=== PATIENT | male | born 1970 | race Caucasian/White ===

== ENCOUNTER → 2016-08-08 | Outpatient (CLI) | payer BC ==
[2016-08-08 16:45] VITALS: BP 137/84; PULSE 67; TEMP 97.8; BMI 36.9
[2016-08-08 17:48] LABS: CH 30.3; CHCM 33.6; HCT 41.5 % (39.0-53.0); HGB 14.1 gm/dL (13.0-17.5); MCH 30.9 pg (25.0-35.0); MCHC 34.1 g/dL (31.0-37.0); MCV 90.7 fL (80.0-100.0); Mean Platelet Volume 7.6; RBC 4.58 m/uL (4.30-5.90); RDW 13.1 % (11.5-15.5); WBC 10.1 k/uL (3.8-10.6)
[2016-08-08 17:56] LABS: Hemoglobin A1C 5.6 % (4.2-6.1); INR 1.1 (<1.1); Partial Thromboplastin Time 25.3 sec (22.0-30.0); Prothrombin Time 10.8 sec (9.0-12.0)
[2016-08-08 18:12] LABS: ALT 38 U/L (21-72); AST 25 U/L (17-59); Alkaline Phosphatase 81 U/L (38-126); Anion Gap 8 mmol/L; Blood Urea Nitrogen 17 mg/dL (9-20); Calcium 9.5 mg/dL (8.4-10.2); Carbon Dioxide 27 mmol/L (22-30); Chloride 107 mmol/L (98-107); Cholesterol 117 mg/dL (<200); Glucose 85 mg/dL (74-99); HDL Cholesterol 32 mg/dL (40-60); Iron 100 ug/dL (49-181); Non-African American GFR(MDRD) >60 (>60 ml/min/1.73 sqM); Potassium 4.7 mmol/L (3.5-5.1); Sodium 142 mmol/L (137-145); Total Bilirubin 0.5 mg/dL (0.2-1.3); Total Protein 6.7 g/dL (6.3-8.2); Triglycerides 141 mg/dL (<150)
[2016-08-08 18:23] LABS: % Iron Saturation 35.6 % (20-50); Prealbumin 22 mg/dL (18-36); Total Iron Binding Capacity 281 ug/dL (261-462)
[2016-08-08 19:14] LABS: Vitamin B12 588 pg/mL (239-931)
[2016-08-11 21:25] LABS: Selenium 145 mcg/L (63-160)
--- NOTE | 2016-09-10 17:58 | P.PN ---
Progress Note - Text DATE OF CONSULTATION: 08/08/2016 CHIEF COMPLAINT: Bariatric evaluation. HISTORY OF PRESENT ILLNESS: Herb Romero is a 46-year-old gentleman who reports having his adjustable gastric band placed in 2010. He is now 6 years out. For his height of 5 feet 10-1/2 inches his ideal body weight is 173 pounds. His highest weight was 366 pounds. Today he comes in weighing 261 pounds. Body mass index has been reduced from 51.9 down to 37. He is still 88 pounds overweight. He reports severe nighttime reflux including with sitting up. His reflux has been prolonged for the last six months. He has poor response to therapy with Zantac. Incidentally from his lowest weight of 229 to 230 pounds, he has gained another 30 pounds with worsening of his symptoms. He reports that bread and meat get stuck with his band. He has troubles with bread including salads. He reports not having acid reflux prior to his surgery. He also reports having at least troubles with sleep where he snores at night. He now presents for further evaluation and management. PAST MEDICAL HISTORY: 1. Gastroesophageal reflux disease. 2. Morbid obesity. 3. Osteoarthritis of the joints. PAST SURGICAL HISTORY: 1. Placement of adjustable gastric band in 2010. 2. Inguinal hernia repair. 3. Tonsillectomy. MEDICATIONS: Zantac. ALLERGIES: Denies. SOCIAL HISTORY: Current daily smoker. FAMILY HISTORY: Significant for morbid obesity. REVIEW OF SYSTEMS: CONSTITUTIONAL: Highest personal weight of 366 pounds. Weight loss of 106 pounds. He is still 88 pounds overweight. Body mass index is reduced and 51.9 down to 37. HEENT: Wears glasses. No reports of troubles with bleeding. Has intermittent dysphagia to textured foods. ENDOCRINE: No reports of blood sugar intolerance or thyroid disorder. RESPIRATORY: He denies any pneumonia. He has history of snoring including occasional daytime somnolence. Underwent treatment for obstructive sleep apnea. GASTROINTESTINAL: Reports worsening gastroesophageal reflux disease in the last 6 months. No reports of blood in stools. CARDIOVASCULAR: No reports of chest pain or heart attack. NEURO: No strokes or seizure disorder. MUSCULOSKELETAL: Has occasional joint pain. PSYCH: No reports of depression or suicidal ideation. HEMATOLOGIC: Denies any easy bruising or bleeding. PHYSICAL EXAM: VITAL SIGNS: 97.8, 67, 137/84; 5 foot 10-05/07, 261 pounds. Body mass index of 37. GENERAL: Well-developed pleasant male in no acute distress. HEENT: No scleral icterus. Extraocular movements grossly intact. Moist buccal mucosa. NECK: Supple without lymphadenopathy. CHEST: Nonlabored respirations with equal bilateral excursions. CARDIOVASCULAR: Regular rate and rhythm. ABDOMEN: Protuberant, soft, nontender. Palpable lap band port along the left upper quadrant without tenderness. MUSCULOSKELETAL: No clubbing, cyanosis, or edema. NEURO: No focal or lateralizing signs. PSYCH: Appropriate affect. Alert to person, place, and time. BARIATRIC LABS: White count normal at 10.3, hemoglobin normal at 14.1. HDL low at 32. Vitamin D is low at 22.6. The rest of labs completely within normal limits. ASSESSMENT: 1. Morbid obesity due to excess calories. 2. Body mass index reduced from 51.9 down to 37. 3. History of adjustable gastric band. 4. Gastroesophageal reflux disease, uncontrolled with therapy. 5. History of snoring. 6. Vitamin D deficiency. 7. Low HDL. 8. Dysphagia to solid foods. PLAN: 1. I have recommend adjustment of his band as he reports troubles particularly with textured foods and healthy foods such as salads. 2. He has completed bariatric metabolic panel with findings consistent with low HDL as well as vitamin D deficiency. 3. I recommend vitamin D supplement at least 5000 units daily. 4. He has gastroesophageal reflux disease especially 5+ years after his band, which may be suspicious for tight band. Recommend weight loss and fluid removal from his band for further evaluation and management. 5. Recommend follow-up approximately 3 to 4 weeks regarding symptom control. PROCEDURE: Adjustment of gastric band. DESCRIPTION OF PROCEDURE: After verbal consent, the patient was laid supine. The port was palpated in the left upper quadrant without tenderness. The skin was cleansed using ChloraPrep wipe. 1% lidocaine was used to anesthetize the skin. Using a 22-gauge noncoring Fritz needle, the port was accessed. 7 mL of fluid was found in his band. Approximately 3 mL of fluid was removed. A total of 4 mL was found in his band. The patient is able to tolerate sips of water without symptoms. He was also recommended to undergo bariatric high-protein diet. After adjustment of his band, he reports moderate improvement of his reflux disease as well.
--- NOTE | 2016-09-12 17:31 | FL ---
EXAMINATION TYPE: FL esophagus cervic/pharynx DATE OF EXAM: 09/12/2016 5:00 PM HISTORY: 46-year-old male evaluate for band slippage, patient with a 5 pound weight gain, difficulty accessing the port. COMPARISON: NONE TECHNIQUE: Single contrast esophagram is performed. 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 The lap band p ort projecting at the left upper quadrant is slightly tilted. The esophagus shows normal motility. There is good flow of contrast across the lap band without any o bstruction or evidence for lap band prolapse. IMPRESSION: No evidence for obstruction or lap band prolapse. No significant restriction to the passage of contra st across the lap band. The lap band port is slightly rotated. Refer to the cdl flatbed truck driver radiograph.
== END | disposition home or self-care (01) ==
LOC: BARWHC3 15:23
PROVIDERS: ATTEND Surgery Plastic and Reconstructive Surgery
DX: Z48.815 Encounter for surgical aftercare following surgery on the digestive system (principal); E66.01 Morbid (severe) obesity due to excess calories; E21.1 Secondary hyperparathyroidism, not elsewhere classified; D50.8 Other iron deficiency anemias; K90.89 Other intestinal malabsorption; K21.9 Gastro-esophageal reflux disease without esophagitis; E55.9 Vitamin D deficiency, unspecified; K74.1 Hepatic sclerosis; N19 Unspecified kidney failure; K50.90 Crohn's disease, unspecified, without complications; R06.83 Snoring; R79.89 Other specified abnormal findings of blood chemistry; R13.10 Dysphagia, unspecified; F17.200 Nicotine dependence, unspecified, uncomplicated; Z68.37 Body mass index [BMI] 37.0-37.9, adult; Z98.84 Bariatric surgery status; Z79.899 Other long term (current) drug therapy
CPT/HCPCS: 80053; 80061; 82306; 82525; 82607; 82728; 82746; 83036; 83540; 83550; 83735; 83970; 84100; 84134; 84255; 84425; 84443; 84590; 84630; 85027; 85610; 85730; 99202

== ENCOUNTER → 2016-09-12 | Outpatient (CLI) | payer BC ==
[2016-09-12 16:38] VITALS: BP 134/84; PULSE 61; RESP 16; TEMP 98.2; BMI 37.5
--- NOTE | 2016-11-01 12:30 | P.PN ---
Progress Note - Text DATE OF SERVICE: 09/12/2016. CHIEF COMPLAINT: History of adjustable gastric band. HISTORY OF PRESENT ILLNESS: Herb Romero is a 46-year-old gentleman with a past medical history of adjustable gastric band placed over 6 years ago. At his height of 5 foot 10 and one half inches, his ideal body weight is 173 pounds. His highest weight was 366 pounds. Today he comes in weighing 254 pounds. He has maintained 102 pounds weight loss. He has already gained approximately 4 pounds in 2 months. Body mass index reduced from 51.9 down to 37.5. Total BMI point reduction is 14 points. He is still at least 91 pounds overweight. His gastroesophageal reflux disease has moderately improved as well. PAST MEDICAL HISTORY: 1. Gastroesophageal reflux disease. 2. Morbid obesity. 3. Osteoarthritis of the joints. PAST SURGICAL HISTORY: 1. Placement of adjustable gastric band in 2010. 2. Inguinal hernia repair. 3. Tonsillectomy. MEDICATIONS: 1. Omeprazole ALLERGIES: Denies. SOCIAL HISTORY: Current daily smoker. FAMILY HISTORY: Significant for morbid obesity. REVIEW OF SYSTEMS: CONSTITUTIONAL: At his height of 5 foot 10 and one half inches, his ideal body weight is 173 pounds. His highest weight was 366 pounds. Today he comes in weighing 254 pounds. He has maintained 102 pounds weight loss. He has already gained approximately 4 pounds in 2 months. Body mass index reduced from 51.9 down to 37.5. Total BMI point reduction is 14 points. He is still at least 91 pounds overweight. HEENT: Wears glasses. No reports of troubles with bleeding. Has intermittent dysphagia to textured foods. ENDOCRINE: No reports of blood sugar intolerance or thyroid disorder. RESPIRATORY: He denies any pneumonia. He has history of snoring including occasional daytime somnolence. Underwent treatment for obstructive sleep apnea. GASTROINTESTINAL: Personal history of gastroesophageal reflux disease now improved with removal of fluid from his band. No reports of blood in stools. CARDIOVASCULAR: No reports of chest pain or heart attack. NEURO: No strokes or seizure disorder. MUSCULOSKELETAL: Has occasional joint pain. PSYCH: No reports of depression or suicidal ideation. HEMATOLOGIC: Denies any easy bruising or bleeding. PHYSICAL EXAM: VITAL SIGNS: 98.2, 61, 16, 134/84, 5 feet 10-1/2 inches, 264 pounds. Body mass index of 37.5. GENERAL: Well-developed pleasant male in no acute distress. HEENT: No scleral icterus. Extraocular movements grossly intact. Moist buccal mucosa. NECK: Supple without lymphadenopathy. CHEST: Nonlabored respirations with equal bilateral excursions. CARDIOVASCULAR: Regular rate and rhythm. ABDOMEN: Protuberant, soft, nontender. Palpable lap band port along the left upper quadrant without tenderness. MUSCULOSKELETAL: No clubbing, cyanosis, or edema. NEURO: No focal or lateralizing signs. PSYCH: Appropriate affect. Alert to person, place, and time. LABS: Basic metabolic panel was reviewed, demonstrating white count normal at 7.1. Hemoglobin normal at 14.1. Hemoglobin A1c normal 5.6%. HDL low at 32. Vitamin D low at 22.6. Trace elements within normal limits. ASSESSMENT: 1. Morbid obesity due to excess calories, improved. 2. Body mass index reduced from 51.9 down to 37.5. 3. Personal history of adjustable gastric band. 4. Gastroesophageal reflux disease, resolved following adjustment of adjustable gastric band. 5. Vitamin D deficiency. 6. History of snoring. 7. Low HDL. PLAN: 1. Recommend vitamin D supplement at least 5000 units daily. 2. He has regained weight already in one month and we will recommend adjustment. 3. Recommend at minimum yearly bariatric metabolic panel to evaluate and investigate nutritional deficiencies. PROCEDURE: Adjustment of gastric band. DESCRIPTION: After verbal consent, the patient was laid supine. The skin was cleansed using ChloraPrep. 1 mL of 1% lidocaine was used to anesthetize to localized the skin. Using a non-core 22-gauge needle, the port was attempted at least 3 passes. The port of the band was found to be tilted hence prohibiting access of his band. The patient has elected to stop. He had tolerated the procedure well.
== END | disposition home or self-care (01) ==
LOC: BARWHC3 15:20
PROVIDERS: ATTEND Surgery Plastic and Reconstructive Surgery
DX: E66.01 Morbid (severe) obesity due to excess calories (principal); Z98.84 Bariatric surgery status; Z68.37 Body mass index [BMI] 37.0-37.9, adult; K21.9 Gastro-esophageal reflux disease without esophagitis; E55.9 Vitamin D deficiency, unspecified
CPT/HCPCS: 99212

== ENCOUNTER → 2017-03-07 | Outpatient (CLI) | payer BC ==
[2017-03-07 12:21] VITALS: BP 122/81; PULSE 63; RESP 16; TEMP 98.3; BMI 38.0
--- NOTE | 2017-05-06 17:53 | P.PN ---
Subjective Progress Note Date: 03/07/17 DATE OF SERVICE: 03/07/2017. CHIEF COMPLAINT: History of adjustable gastric band. HISTORY OF PRESENT ILLNESS: Herb Romero is a 46-year-old gentleman with a past medical history of adjustable gastric band placed over 6 years ago. At his height of 5 foot 10 and one half inches, his ideal body weight is 173 pounds. His highest weight was 366 pounds. Today he comes in weighing 268 pounds. He has lost 10 pounds in 3 months since his last evaluation. He has maintained 98 pounds weight loss. His gastroesophageal reflux disease has recurred. Separately, he has history of panniculitis. Body mass index reduced from 51.9 down to 38.0. Total BMI point reduction is 13.9 points. He is 95 pounds overweight. PAST MEDICAL HISTORY: 1. Gastroesophageal reflux disease. 2. Morbid obesity. 3. Osteoarthritis of the joints. PAST SURGICAL HISTORY: 1. Placement of adjustable gastric band in 2010. 2. Inguinal hernia repair. 3. Tonsillectomy. MEDICATIONS: 1. Omeprazole ALLERGIES: Denies. SOCIAL HISTORY: Current daily smoker. FAMILY HISTORY: Significant for morbid obesity. REVIEW OF SYSTEMS: CONSTITUTIONAL: At his height of 5 foot 10 and one half inches, his ideal body weight is 173 pounds. His highest weight was 366 pounds. Today he comes in weighing 278 pounds. Body mass index reduced from 51.9 down to 38.0. Total BMI point reduction is 13.9 points. He is 95 pounds overweight. HEENT: Wears glasses. No reports of troubles with bleeding. Has intermittent dysphagia to textured foods. ENDOCRINE: No reports of blood sugar intolerance or thyroid disorder. RESPIRATORY: He denies any pneumonia. He has history of snoring including occasional daytime somnolence. Underwent treatment for obstructive sleep apnea. GASTROINTESTINAL: Personal history of gastroesophageal reflux disease. No reports of blood in stools. CARDIOVASCULAR: No reports of chest pain or heart attack. NEURO: No strokes or seizure disorder. MUSCULOSKELETAL: Has occasional joint pain. PSYCH: No reports of depression or suicidal ideation. HEMATOLOGIC: Denies any easy bruising or bleeding. SKIN: Has panniculitis. No history of cancers. PHYSICAL EXAM: VITAL SIGNS: 5 feet 10-1/2 inches, 268 pounds. Body mass index of 38.0. Vital Signs Temp 98.3 F 03/07/17 11:58 Pulse 63 03/07/17 11:58 Resp 16 03/07/17 11:58 BP 122/81 03/07/17 11:58 Pulse Ox GENERAL: Well-developed pleasant male in no acute distress. HEENT: No scleral icterus. Extraocular movements grossly intact. Moist buccal mucosa. NECK: Supple without lymphadenopathy. CHEST: Nonlabored respirations with equal bilateral excursions. CARDIOVASCULAR: Regular rate and rhythm. ABDOMEN: Protuberant, soft, nontender. Palpable lap band port along the left upper quadrant without tenderness. MUSCULOSKELETAL: No clubbing, cyanosis, or edema. NEURO: No focal or lateralizing signs. PSYCH: Appropriate affect. Alert to person, place, and time. SKIN: Good skin turgor. Has panniculitis. ASSESSMENT: 1. Morbid obesity due to excess calories. 2. Body mass index reduced from 51.9 down to 38.0. 3. Personal history of adjustable gastric band. 4. Gastroesophageal reflux disease. 5. Panniculitis. PLAN: 1. May need future adjustment of gastric band with his history of gastroesophageal reflux disease. 2. I have recommended taking medications such as Zantac or omeprazole to control symptoms. 3. Recommend ultrasound of the gallbladder for possible cholecystitis. 4. May benefit from upper endoscopy for history of gastroesophageal reflux disease. 5. Recommend Nystatin powder for history of panniculitis.
== END | disposition home or self-care (01) ==
LOC: BARWHC3 11:25
PROVIDERS: ATTEND Surgery Plastic and Reconstructive Surgery
DX: Z09 Encounter for follow-up examination after completed treatment for conditions other than malignant neoplasm (principal); E66.01 Morbid (severe) obesity due to excess calories; K21.9 Gastro-esophageal reflux disease without esophagitis; M79.3 Panniculitis, unspecified; F17.200 Nicotine dependence, unspecified, uncomplicated; Z68.38 Body mass index [BMI] 38.0-38.9, adult; Z98.84 Bariatric surgery status
CPT/HCPCS: 99211

== ENCOUNTER → 2017-03-21 | Outpatient (CLI) | payer BC ==
--- NOTE | 2017-03-21 09:23 | US ---
EXAMINATION TYPE: US gallbladder DATE OF EXAM: 03/21/2017 COMPARISON: NONE CLINICAL HISTORY: R10.11 Right upper quadrant pain. Patient states having an increase in heartburn EXAM MEASUREMENTS: Liver Length: 19.8 cm Gallbladder Wall: 0.2 cm CHD: 0.5 cm Right Kidney: 12.2 x 6.7 x 6.8 cm Pancreas: Obscured by bowel gas Liver: Increased attenuation, decreased visualization of vessels suggestive of fatty infiltrate. Ap pears echogenic and enlarged. Left anterior lobe, hypoechoic lesion seen = 1.0 by 0.5 cm. Second anec hoic hepatic cysts measure 0.6 cm. Gallbladder: Two focal lesions adjacent to wall= 0.3 cm and 0.3 cm that are nonshadowing and hyperec hoic. No gallbladder wall thickening, biliary sludge or cholelithiasis. Evidence for sonographic Marsh's sign: neg CHD: wnl Right Kidney: wnl IMPRESSION: 1. No sonographic evidence of acute cholecystitis or cholelithiasis. 2. Subcentimeter gallbladder polyps (3 mm each). Surveillance is recommended. 3. Findings most compatible with mild hepatic steatosis and a 6 mm left hepatic cyst. However a secon d hypoechoic avascular 1 cm lesion is not sonographically compatible with a simple cyst. Dynamic enha nced CT hepatic mass protocol is recommended for further characterization.
== END | disposition home or self-care (01) ==
LOC: RADUSWWP 08:23
PROVIDERS: ATTEND Surgery Plastic and Reconstructive Surgery
DX: K82.4 Cholesterolosis of gallbladder (principal); K76.0 Fatty (change of) liver, not elsewhere classified; K76.89 Other specified diseases of liver
CPT/HCPCS: 76705

== ENCOUNTER → 2024-03-11 | Outpatient (CLI) | payer BC ==
[2024-03-11 15:08] LABS: Basophils # (A) 0.08 X 10*3/uL (0.00-0.10); Eosinophils # (A) 0.31 X 10*3/uL (0.04-0.35); Eosinophils % (A) 3.9 %; HGB 14.4 g/dL (13.0-17.0); Lymphocytes # (A) 1.97 X 10*3/uL (0.90-5.00); Lymphocytes % (A) 25.1 %; MCH 30.1 pg (27.0-32.0); MCHC 32.7 g/dL (32.0-37.0); MCV 91.9 FL (80.0-97.0); Monocytes # (A) 0.75 X 10*3/uL (0.20-1.00); Monocytes % (A) 9.5 %; NRBC Per 100 WBC 0 X 10*3/uL (0.00-0.01); Neutrophils # (A) 4.71 X 10*3/uL (1.80-7.70); Platelet Count 193 X 10*3/uL (140-440); RBC 4.79 X 10*6/uL (4.40-5.60); WBC 7.86 X 10*3/uL (4.50-10.00)
[2024-03-11 15:16] LABS: ALT 26 U/L (10-49); AST 28 U/L (14-35); Albumin/Globulin Ratio 1.48 Ratio (1.60-3.17); Alkaline Phosphatase 110 U/L (41-126); BUN/Creat Ratio 11.15 Ratio (12.00-20.00); Blood Urea Nitrogen 14.5 mg/dL (9.0-27.0); Calcium 9.5 mg/dL (8.7-10.3); Carbon Dioxide 26.8 mmol/L (21.6-31.8); Chloride 106 mmol/L (96-109); Globulin 2.7 g/dL (1.6-3.3); Glucose 112 mg/dL (70-110); Potassium 4.7 mmol/L (3.5-5.5); Sodium 143 mmol/L (135-145); Total Bilirubin 0.5 mg/dL (0.3-1.2); Total Protein 6.7 g/dL (6.2-8.2)
== END | disposition home or self-care (01) ==
LOC: LABWHC1 08:56
PROVIDERS: ATTEND Surgery Plastic and Reconstructive Surgery
DX: Z01.812 Encounter for preprocedural laboratory examination (principal)
CPT/HCPCS: 36415; 80053; 85025; 93005

== ENCOUNTER → 2024-03-16 | Day surgery (SDC) | payer BC ==
[~2024-03-16] MED LIST: DEXAMETHASONE SOD PHOSPHATE 4 MG/ML 1 ML VIAL ONE; GLYCOPYRROLATE 0.2 MG/ML 2 ML VIAL ONE; LACTATED RINGERS 1,000 ML IV SCH; LIDOCAINE 1% INJ 10MG/ML (20 ML MDV) ONE; MIDAZOLAM 2 MG/2 ML VIAL ONE; NEOSTIGMINE 1 MG/ML 10 ML VIAL ONE; ONDANSETRON 4 MG/2 ML VIAL IVP PRN; PROPOFOL 10 MG/ML 20 ML VIAL IV ONE; ROCURONIUM 10 MG/ML (5 ML VIAL) IV ONE; ROPIVACAINE 5 MG/ML 30 ML VIAL ONE; SUCCINYLCHOLINE CHLORIDE 200 MG/10 ML VIAL IV ONE; ePHEDrine 50 MG/ML 1 ML VIAL ONE; fentaNYL (PF) 50 MCG/ML 2 ML AMP ONE
--- NOTE | 2024-03-16 06:23 | P.GSHP ---
History of Present Illness H&P Date: 03/16/24 CHIEF COMPLAINT: Morbid obesity HISTORY OF PRESENT ILLNESS: Herb Romero is a 53-year-old male who comes with lifelong morbid obesity. He had adjustable gastric banding 2010, 13 years ago. As result of morbid obesity, he has hypertensive heart disease, obstructive sleep apnea, hyperlipidemia, osteoarthritis of the hips and knees. He presents with chronic complications with adjustable gastric band including severe gastroesophageal reflux disease over 7 years. He presents with intoler ance to band adjustments. At his height of 5 foot 10.5 inches, his ideal body weight is 173 pounds. His highest weight was 366 pounds with body mass index 51.9. He comes in 320 pounds, body mass index 44.6. Total weight loss 46 pounds. He is at 147 pounds overweight. PAST MEDICAL HISTORY: 1. Morbid obesity due to excess calories 2. Body mass index of 51.9 to 44.6 3. Osteoarthritis of the knees. 4. Osteoarthritis of the lower back. 5. Gastroesophageal reflux disease 6. Obstructive sleep apnea 7. Hypertensive heart disease 8. Right kidney cancer PAST SURGICAL HISTORY: 1. Placement of adjustable gastric band in 2010. 2. Inguinal hernia repair. 3. Tonsillectomy. 4. Right partial nephrectomy HOME MEDICATIONS: Reviewed ALLERGIES: Reviewed SOCIAL HISTORY: Past tobacco use. FAMILY HISTORY: No family history of ulcerative colitis disease or Crohn's disease. Family history of morbid obesity. No lupus in the family. No reports of stomach or esophageal cancer. REVIEW OF ORGAN SYSTEMS: CONSTITUTIONAL: At his height of 5 foot 10.5 inches, his ideal body weight is 173 pounds. His highest weight was 366 pounds with body mass index 51.9. He comes in 320 pounds, body mass index 44.6. Goal weight loss 46 pounds. He is at 147 pounds overweight. HEENT: Denies any active troubles with vision or hearing. ENDOCRINE: Has diabetes. Has hypothyroidism. CARDIOVASCULAR: Past reports of palpitations or heart attacks or chest pain. RESPIRATORY: Has daytime somnolence. GASTROINTESTINAL: Denies any bright red blood per rectum. Has gastroesophageal reflux disease. MUSCULOSKELETAL: Has lower back pain and joint pain. Has osteoarthritis of the knees. NEURO: No headaches. No seizure disorders. PSYCH: Has depression. No suicidal ideation. RHEUMATOLOGIC: No lupus. No rheumatoid arthritis. HEMATOLOGIC: Denies any abnormal bleeding or bruising. No personal history of DVTs. SKIN: Has rash. No skin cancer. PHYSICAL EXAM: VITAL SIGNS: Height 5 foot 10.5 inches, weight 320 pounds. BMI 44.6 GENERAL: Well-developed in no acute distress. HEENT: No scleral icterus. Extraocular movements grossly intact. Hears conversational speech. No nasal drainage. NECK: Supple without lymphadenopathy. CHEST: Nonlabored respirations with equal bilateral excursions. CARDIOVASCULAR: Regular rate and regular rhythm. Distal 2+ pulses. ABDOMEN: Obese, soft, nontender, nondistended. MUSCULOSKELETAL: No clubbing, cyanosis. NEURO: No focal or lateralizing signs. Cranial nerves 2 through 12 grossly within normal limits. PSYCH: Appropriate affect. Alert and oriented to person, place and time. SKIN: Good skin turgor. Well perfused. ASSESSMENT: 1. Morbid obesity due to excess calories 2. Body mass index of 51.9 to 44.6 3. Osteoarthritis of the knees. 4. Osteoarthritis of the lower back. 5. Gastroesophageal reflux disease 6. Obstructive sleep apnea 7. Hypertensive heart disease 8. Right kidney cancer 9. Complications from adjustable gastric banding. PLAN: 1. He presents with intolerance to gastric banding with severe gastroesophageal reflux disease for over 7 years. Removal of adjustable gastric band and also component with upper endoscopy described. 2. Preoperative labs including complete metabolic panel and CBC with type and screen recommended. 3. DVT prophylaxis per [place] [facility]. 4. Antibiotic prophylaxis. 5. 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- treated with surg and immunotherapy History of Any Multi-Drug Resistant Organisms: None Reported Past Surgical History: Bariatric Surgery, Hernia Repair, Tonsillectomy Additional Past Surgical History / Comment(s): lap band 2010, right kidney & ureter removed Past Anesthesia/Blood Transfusion Reactions: No Reported Reaction Smoking Status: Former smoker - Past Family History Mother Family Medical History: Rheumatoid Arthritis (RA) Father Family Medical History: Cancer, Coronary Artery Disease (CAD), Renal Disease Additional Family Medical History / Comment(s): prostate ca, skin ca Medications and Allergies Home Medications Medication Instructions Recorded Confirmed Type Losartan-Hctz 50-12.5 mg [Hyzaar 1 tab PO DAILY 03/10/24 03/10/24 History 50-12.5] Tamsulosin HCl [Flomax] 0.4 mg PO HS 03/10/24 03/10/24 History amLODIPine BESYLATE 5 mg PO DAILY 03/10/24 03/10/24 History Allergies Allergy/AdvReac Type Severity Reaction Status Date / Time No Known Allergies Allergy Verified 03/10/24 17:22
[2024-03-16] MEDS: DEXAMETHASONE SOD PHOSPHATE 4 MG/ML 1 ML VIAL IV ONE (11:02)
[2024-03-16] MEDS: ACETAMINOPHEN TAB 500 MG TAB PO PRN (11:02)
[2024-03-16] MEDS: ONDANSETRON 4 MG/2 ML VIAL IVP ONE (11:02)
[2024-03-16] MEDS: IV FLUID CONTINUATION 1,000 ML IV ONE (11:08)
[2024-03-16] MEDS: MIDAZOLAM 2 MG/2 ML VIAL IVP ONE (11:15)
[2024-03-16] MEDS: HEPARIN SODIUM,PORCINE 5,000 UNIT/ML 1 ML VIAL SQ PRN (11:19)
--- NOTE | 2024-03-16 11:38 | P.ANPRN ---
Procedure Note - Anesthesia - Nerve Block Performed Bilateral Erector Spinae Single Time Out Performed: Yes Date of Procedure: 03/16/24 Procedure Start Time: 11:15 (1150) Procedure Stop Time: 11:20 Location of Patient: PreOp Indication: Acute Post-Operative Pain, Analgesia, Requested by Surgeon Sedation Type: Sedate with meaningful contact maintained Preparation: Sterile Prep Position: Prone Catheter: None Needle Types: Pajunk Needle Gauge: 21 Ultrasound used to visualize needle placement: Yes Ultrasound used to observe medication spread: Yes Injectate: 0.5% Ropivacaine (see comment for volume) ([id number]---Uodw side. T7 needle level.) Blood Aspirated: No Pain Paresthesia on Injection Noted: No Resistance on Injection: Normal Image Stored and Saved: Yes Events: Uneventful and Well Tolerated
[2024-03-16] MEDS: ceFAZolin 3 GM in SODIUM CHLORIDE 0.9% 100 ML IVPB PRN (12:05)
[2024-03-16] MEDS: LIDOCAINE 1%-EPI 1:100,000 20 ML VIAL SQ ONE (12:36)
[2024-03-16 13:50] VITALS: TEMP 9.9
[2024-03-16] MEDS: HYDROmorphone 0.5 MG/0.5 ML SYRINGE IVP PRN (14:14)
[2024-03-16] MEDS: LACTATED RINGERS 1,000 ML IV ONE (14:26)
[2024-03-16 15:23] VITALS: RESP 16
[2024-03-16 15:51] VITALS: BP 122/76; PULSE 85
--- NOTE | 2024-03-16 16:51 | P.OP ---
Date of Procedure: 03/16/24 Description of Procedure: SURGEON: LANETTE MCPHERSON MD PLUSH WEAVER: EZEKIEL PREOPERATIVE DIAGNOSES: 1. Morbid obesity due to excess calories 2. Body mass index of 51.9 to 44.6 3. Osteoarthritis of the knees. 4. Osteoarthritis of the lower back. 5. Gastroesophageal reflux disease 6. Obstructive sleep apnea 7. Hypertensive heart disease 8. Right kidney cancer 9. Complications from adjustable gastric banding. 10. Skin cancer POSTOPERATIVE DIAGNOSES: 1. Morbid obesity due to excess calories 2. Body mass index of 51.9 to 44.6 3. Osteoarthritis of the knees. 4. Osteoarthritis of the lower back. 5. Gastroesophageal reflux disease 6. Obstructive sleep apnea 7. Hypertensive heart disease 8. Right kidney cancer 9. Complications from adjustable gastric banding. 10. Gastritis 11. Fatty liver disease 12. Severe intra-abdominal adhesions 13. Diaphragmatic hiatal hernia 14. Skin cancer OPERATION: 1. Robotic-assisted da Sapphire Xi laparoscopic removal of adjustable gastric band and all components. 2. Esophagogastroduodenoscopy ANESTHESIA: General with local anesthetic. ESTIMATED BLOOD LOSS: 5 mL SPECIMENS REMOVED: 1. Adjustable gastric band and components Condition: stable Disposition: same day COMPLICATIONS: None. Operative Findings: 1. Adjustable gastric band port found along the epigastrium removed in total 2. Densely encased adjustable gastric band removed in total 3. Moderate epigastric peritoneum adhesions involving adjustable gastric band 4. Diaphragm hiatal hernia, 2 cm 5. No full-thickness erosion of the adjustable gastric band and stomach identified 6. Prior open biopsy from skin cancer site by insurance application investigator at right upper quadrant undisturbed. INDICATIONS: The patient is a 53-year-old male who presents with complications of adjustable gastric band. Surgical options were described including removal of the band. As she has persistent pain and discomfort from the band, removal of the adjustable gastric band and port including all components was proposed. Benefits and risks of the procedure were described. Informed consent was o btained. DESCRIPTION: The patient was brought into the operating room theater. He was placed supine. He had received Lovenox subcutaneously for DVT prophylaxis. Additionally Peridex oral solution as an oral decontaminant was placed per anesthesia. After general induction, the abdomen was prepped and draped in standard sterile fashion. Ioban draping was placed along the abdomen. A robotic da Sapphire Xi system was prepped and primed. Prior to incision, a timeout protocol was performed and confirmed with the surgical team. Attention was brought to the abdomen where the port was palpated along the epigastrium. After localizing the skin, transverse 3 cm incision was made over the adjustable gastric band port and circumferentially dissected free using Bovie cautery and blunt dissection. Attention was now brought to the intra-abdominal component of the procedure for the removal of the adjustable gastric band. Incisions were proposed at 12 cm from the xiphoid. Proposed port sites were marked with indelible marker along the anterior axillary line bilaterally, mid clavicular line bilaterally with each port marked 10 cm from each other. A 5 mm 0 degrees laparoscopic trocar entry was performed along the left upper quadrant. The abdomen was insufflated to 15 mmHg pressure, which was tolerated well. Diagnostic laparoscopy demonstrated no injury to bowel, viscera, or mesentery. Severe perigastric including epigastric adhesions about the adjustable can was identified. The liver had fatty liver deposits consistent with fatty liver disease. An 8 mm camera port was placed left lateral to the umbilicus at the epigastrium, 12 cm distal to the xiphoid. Next, 8-mm port was placed along the right mid abdomen. The 5 mm port was exchanged for 12 mm trocar. The robot was docked along the left lateral abdomen. The patient was repositioned in reverse Trendelenburg position, 25-degrees. A 30-degree camera was used. Using graspers for arm 1, including hook artery and scissors with for arm 3, and graspers was used for arm 4. The robotic system was docked and primed as described. Instruments were interchanged by the lead assistant manager. I had sat at the console. Adjustable gastric band was embedded into dense cicatrix which was carefully dissected free. Additionally, the buckle of the adjustable gastric band was densely adherent to the deep tissue requiring cutting the band away from the buckle. The port was followed with its tubing to the gastric band. The gastrohepatic ligament was scarred from prior surgery. The cicatrix around the adjustable gastric band was carefully dissected free. The anti-prolapse stitch was intact. Using hot cautery, the cicatrix of the port was incised. The band was then freed. Allergan adjustable gastric band was removed in total. Care was taken to avoid any gastrotomies. The band buckle was cut. I then went to the head of the bed to perform intraoperative esophagogastroduodenoscopy to evaluate for gastritis and any full thickness injury to the stomach. An Olympus gastroscope was passed from the posterior oropharynx down to the esophagus, where the squamocolumnar junction was found LA grade A erosive esophagitis, chronic changes. The stomach was entered. Mild chronic gastritis was found along the antrum with biopsies obtained of the antrum and duodenal. Retroflexion of the scope confirmed a Hill grade 3 lower esophageal valve. Small 2 cm diaphragmatic hernia was identified. No full-thickness erosion from the prior band was encountered. The stomach was desufflated. The patient tolerated the procedure well. No evidence of leak was encountered from the removal of the band. The scope was removed with desufflation of the stomach. I re-scrubbed into the case. The port and band were removed in total without injury to the stomach via the epigastrium including the cut buckle. Hemostasis was excellent. Diagnostic laparoscopy demonstrated complete removal of all foreign body. All instruments and pneumoperitoneum were evacuated from the abdominal cavity. The port extraction site was hemostatic. The port site was irrigated using normal saline and hydrogen peroxide. The incisions were reapproximated using 4- 0 Monocryl in a subcuticular interrupted fashion. Optifoam dressing was placed over the port extraction site. At the end of the procedure, needle, sponge and instrument counts were verified correct by the surgical attendant. The patient had tolerated the procedure well. An abdominal binder was placed. The patient was transferred to Postanesthesia Care Unit in stable condition. Postoperative findings with intraoperative images were discussed with the patient's family who were pleased with the level of care. Plan - Discharge Summary Discharge Rx Participant: No New Discharge Prescriptions: New Simethicone [Gas-X] 125 mg PO AC-TID PRN #20 capsule PRN Reason: Pain Acetaminophen Tab [Tylenol Tab] 1,000 mg PO Q6HR PRN #30 tablet PRN Reason: Pain Continue amLODIPine BESYLATE 5 mg PO DAILY Losartan-Hctz 50-12.5 mg [Hyzaar 50-12.5] 1 tab PO DAILY Tamsulosin HCl [Flomax] 0.4 mg PO HS Discharge Medication List Losartan-Hctz 50-12.5 mg [Hyzaar 50-12.5] 1 tab PO DAILY 03/10/24 [History] Tamsulosin HCl [Flomax] 0.4 mg PO HS 03/10/24 [History] amLODIPine BESYLATE 5 mg PO DAILY 03/10/24 [History] Acetaminophen Tab [Tylenol Tab] 1,000 mg PO Q6HR PRN #30 tablet 03/16/24 [Rx] Simethicone [Gas-X] 125 mg PO AC-TID PRN #20 capsule 03/16/24 [Rx] Follow up [facility]ment(s[facility]Ref[facility] [place] - 03/25/24 3:00 pm Patient Instructions/Handouts: Abdominal Binder (DC), Adjustable Gastric Band Removal (DC) Activity/Diet/Wound Care/Special Instructions: NO LONG DRIVES OR AIRPLANE RIDES OVER 60 MINUTES FOR THE NEXT 2 WEEKS, 03/30/24, DUE TO HIGH RISK OF PULMONARY EMBOLISM/DVTs May drive in 72 hrs, 03/19/24 No lifting over 10 pounds in 2 weeks until 03/30/24 May shower. No bath tub soaks for two weeks until 03/30/24 Diet as tolerated. Use Tylenol, simethicone scheduled for the next 24-48 hours for best pain relief. Use ice along incisions for today to prevent swelling. Discharge Disposition: HOME SELF-CARE
== END | disposition home or self-care (01) ==
LOC: OR 10:34
PROVIDERS: ATTEND Surgery Plastic and Reconstructive Surgery
DX: K29.70 Gastritis, unspecified, without bleeding (principal); K21.9 Gastro-esophageal reflux disease without esophagitis; K44.9 Diaphragmatic hernia without obstruction or gangrene; K76.0 Fatty (change of) liver, not elsewhere classified; K66.0 Peritoneal adhesions (postprocedural) (postinfection); G47.33 Obstructive sleep apnea (adult) (pediatric); I11.9 Hypertensive heart disease without heart failure; C64.1 Malignant neoplasm of right kidney, except renal pelvis; K95.09 Other complications of gastric band procedure; M17.0 Bilateral primary osteoarthritis of knee; E66.01 Morbid (severe) obesity due to excess calories; Z68.43 Body mass index [BMI] 50.0-59.9, adult; Z90.89 Acquired absence of other organs; Z87.891 Personal history of nicotine dependence; Z98.84 Bariatric surgery status; Z82.49 Family history of ischemic heart disease and other diseases of the circulatory system; Z98.890 Other specified postprocedural states; Z79.899 Other long term (current) drug therapy
CPT/HCPCS: 43247; 43774; S2900; 64999

== ENCOUNTER → 2024-03-25 | Outpatient (CLI) | payer BC ==
[2024-03-25 16:05] VITALS: BP 150/82; PULSE 72; RESP 16; TEMP 98.1; BMI 45.4
--- NOTE | 2024-03-25 16:49 | P.BASOAP ---
Subjective Progress Note Date: 03/25/24 Has reaction to glue. Need complete recovery. May need other option. All band components. Objective - Vital Signs Vital signs: Vital Signs Temp 98.1 F 03/25/24 15:53 Pulse 72 03/25/24 15:53 Resp 16 03/25/24 15:53 BP 150/82 03/25/24 15:53 Pulse Ox FiO2 Intake & Output 03/24/24 03/25/24 03/25/24 18:59 06:59 18:59 Weight 147.871 kg Assessment/Plan Plan: Date: 03/25/24 Initial Weight: 172.365 kg Initial BMI: 52.9 Current Weight: 147.871 kg Current BMI: 45.4 Type of Surgery: Total Volume in Band: 6.4 Previous Volume: Volume Removed: Volume Added: Band Size:
== END ==
LOC: BARWHC3 14:57
PROVIDERS: ATTEND Surgery Plastic and Reconstructive Surgery
DX: E66.01 Morbid (severe) obesity due to excess calories (principal); F17.200 Nicotine dependence, unspecified, uncomplicated; Z91.048 Other nonmedicinal substance allergy status; Z68.42 Body mass index [BMI] 45.0-49.9, adult
CPT/HCPCS: 99211